=== PATIENT | female | born 1950 | race Caucasian/White ===

== ENCOUNTER 2017-09-20 22:01 | Emergency (ER) | payer MEDICARE, BC ==
[~2017-09-20] VITALS: Ht 149.9 cm; Wt 82.6 kg
[2017-09-20 22:05] VITALS: BP 165/80
--- NOTE | 2017-09-20 23:07 | NUR ---
CALLED PT NAME X3. PT LEFT PER ADMITTING
== END 2017-09-20 23:13 | disposition left against medical advice (07) ==
LOC: ER 22:02
DX: Z53.21 Procedure and treatment not carried out due to patient leaving prior to being seen by health care provider (principal)
CPT/HCPCS: A4606; Z7610

== ENCOUNTER 2017-09-21 03:01 | Emergency (ER) | payer MEDICARE, BC ==
[~2017-09-21] VITALS: Ht 149.9 cm; Wt 86.2 kg
--- NOTE | 2017-09-21 03:14 | NUR ---
PT BIB [facility] TO ER BED 6, PT C/O BACK PAIN. PT HAS HX OF CHRONIC BACK PAIN, PENDING SX. PT PLACED IN GOWN AND MANAGER QUALITY COMPLIANCE. VSS/RESP EVEN UNLABORED/NAD NOTED/SKIN WARM AND DRY/DENIES N-V-D/AOX4. AWAITING MD FREEMAN.
[2017-09-21] MEDS ORDERED: KETOROLAC TROMETHAMINE 15 MG/ML VIAL ONE (03:29)
[2017-09-21] MEDS ORDERED: ACETAMINOPHEN 325 MG TABLET PO ONE (03:30)
[2017-09-21] MEDS ORDERED: ACETAMINOPHEN ES 500 MG TABLET ONE (03:30)
[2017-09-21] MEDS ORDERED: KETOROLAC TROMETHAMINE INJ 30 MG/ML VIAL IM ONE (03:30)
--- NOTE | 2017-09-21 04:15 | NUR ---
PT VSS, CONTINUING TO PROVIDE SAFETY AND COMFORT MEASURES.
--- NOTE | 2017-09-21 05:01 | NUR ---
Chioma rizzo in ED - 09/21/17 at 0522 by RENÉE PT UP TO BEDSIDE COMMODE.
--- NOTE | 2017-09-21 05:24 | NUR ---
Patient discharged to home in stable condition. Written and verbal after care instructions given. Patient verbalizes understanding of instruction. Pt discharged via wheelchair.
[2017-09-21 05:28] VITALS: BP 129/78
== END 2017-09-21 05:28 | disposition home or self-care (01) ==
LOC: ER 03:10
DX: G89.29 Other chronic pain (principal); M54.9 Dorsalgia, unspecified; I10 Essential (primary) hypertension; Z88.6 Allergy status to analgesic agent
CPT/HCPCS: A4606; J1885; Z7610

== ENCOUNTER 2020-08-21 21:56 | Emergency (ER) | payer BC, MEDICARE ==
[~2020-08-21] VITALS: Ht 144.8 cm; Wt 88.0 kg
--- NOTE | 2020-08-21 22:20 | NUR ---
BIBS FOR C/O MIDSTERNAL CP RADITING TO THE L BREAST X 20 MIN. PT AMBULATORY TO BED 01. PLACED ON A MONITOR ,. VSS. WILL CONT TO MONITOR ,
--- NOTE | 2020-08-21 22:44 | NUR ---
dr cutler at bed side
[2020-08-21 22:51] LABS: BASOPHILS % (AUTO) 0.8 % (0.0-2.0); EOSINOPHILS % (AUTO) 3.3 % (0.0-6.0); HEMATOCRIT 38 % (33-45); HEMOGLOBIN 12.4 g/dL (11.5-14.8); LYMPHOCYTES # (AUTO) 1.7 /CMM (0.8-4.8); MEAN CORPUSCULAR HGB CONC 33 g/dl (31.0-36.0); MEAN CORPUSCULAR VOLUME 89 fL (82-100); MONOCYTES # (AUTO) 0.5 /CMM (0.1-1.30); MONOCYTES % (AUTO) 8.1 % (2.0-12.0); NEUTROPHILS # (AUTO) 3.3 /CMM (1.8-8.9); NEUTROPHILS % (AUTO) 57.8 % (43.0-81.0); PLATELET COUNT (AUTO) 241 /CMM (150-450); RED BLOOD CELL COUNT(AUTO) 4.27 MIL/uL (4.0-5.2); WHITE BLOOD COUNT (AUTO) 5.7 K/uL (4.3-11.0)
[2020-08-21 23:03] LABS: CALCIUM, SERUM 9.5 mg/dL (8.5-10.1); CARBON DIOXIDE 27 mmol/L (21-32); CHLORIDE 103 mmol/L (98-107); CREATININE 0.9 mg/dL (0.6-1.3); GLUCOSE 102 mg/dL (74-106); POTASSIUM 3.8 mmol/L (3.5-5.1); SODIUM SERUM 139 mmol/L (136-145); UREA NITROGEN, BLOOD 28 mg/dL (7-18)
--- NOTE | 2020-08-22 00:02 | NUR ---
PT IS MEDICALLY STABLE FOR D/C. IV removed. Catheter intact and site benign. Pressure and 4x4 applied to site. No bleeding noted.Patient discharged to home in stable condition. Written and verbal after care instructions given. Patient verbalizes understanding of instruction.
[2020-08-22 00:05] VITALS: BP 150/88
== END 2020-08-22 00:06 | disposition home or self-care (01) ==
LOC: ER 22:00
DX: R07.9 Chest pain, unspecified (principal); Z20.828 Contact with and (suspected) exposure to other viral communicable diseases; Z88.5 Allergy status to narcotic agent; Z88.2 Allergy status to sulfonamides; I10 Essential (primary) hypertension
CPT/HCPCS: 36415; 71045; 80048; 84484; 85025; 93005 ×2; 99285; C9803; U0003

== ENCOUNTER 2022-02-11 10:57 | Emergency (ER) | payer BC ==
[~2022-02-11] VITALS: Ht 144.8 cm; Wt 87.1 kg
--- NOTE | 2022-02-11 11:15 | NUR ---
DR. FRANCOIS AT [facility]
[2022-02-11 11:55] LABS: BASOPHILS % (AUTO) 0.4 % (0.0-2.0); EOSINOPHILS % (AUTO) 1.3 % (0.0-6.0); HEMATOCRIT 37 % (33-45); HEMOGLOBIN 12.4 g/dL (11.5-14.8); LYMPHOCYTES # (AUTO) 1.3 K/uL (0.8-4.8); LYMPHOCYTES % (AUTO) 24.1 % (20.0-44.0); MEAN CORPUSCULAR HGB CONC 34 g/dl (31.0-36.0); MEAN CORPUSCULAR VOLUME 87 fL (82-100); MONOCYTES # (AUTO) 0.4 K/uL (0.1-1.30); MONOCYTES % (AUTO) 6.9 % (2.0-12.0); NEUTROPHILS # (AUTO) 3.6 K/uL (1.8-8.9); NEUTROPHILS % (AUTO) 67.3 % (43.0-81.0); PLATELET COUNT (AUTO) 196 K/uL (150-450); RED BLOOD CELL COUNT(AUTO) 4.22 MIL/uL (4.0-5.2); WHITE BLOOD COUNT (AUTO) 5.3 K/uL (4.3-11.0)
--- NOTE | 2022-02-11 12:00 | NUR ---
PT P/U FOR CT SCAN
[2022-02-11 12:10] LABS: CALCIUM, SERUM 8.9 mg/dL (8.5-10.1); CREATININE 0.8 mg/dL (0.6-1.3); POTASSIUM 4.2 mmol/L (3.5-5.1)
[2022-02-11 12:16] LABS: ALBUMIN 3.4 g/dL (3.4-5.0); BILIRUBIN,DIRECT 0.1 mg/dL (0.0-0.2); BILIRUBIN,TOTAL 0.2 mg/dL (0.2-1.0); TOTAL PROTEIN, SERUM 6.9 g/dL (6.4-8.2)
[2022-02-11] MEDS ORDERED: LOPE2CAP40 PO (13:44)
[2022-02-11 13:58] VITALS: BP 125/77
--- NOTE | 2022-02-11 14:00 | NUR ---
Patient discharged to home in stable condition. Written and verbal after care instructions given. Patient verbalizes understanding of instruction.
== END 2022-02-11 14:00 | disposition home or self-care (01) ==
LOC: ER 11:01
DX: R10.84 Generalized abdominal pain (principal); I10 Essential (primary) hypertension; Z88.2 Allergy status to sulfonamides; Z88.6 Allergy status to analgesic agent; Z88.8 Allergy status to other drugs, medicaments and biological substances; Z79.899 Other long term (current) drug therapy
CPT/HCPCS: 36415; 80048-TC; 80076-TC; 83690-TC; 85025-TC

== ENCOUNTER 2025-03-14 15:37 | Emergency (ER) | payer BC ==
[~2025-03-14] VITALS: Ht 142.2 cm; Wt 81.2 kg
[~2025-03-14 15:37] MED LIST: LOPE2CAP40 PO
[2025-03-14 15:56] VITALS: BP 132/68; TEMP 98; O2SAT 98
== END 2025-03-14 17:11 | disposition left against medical advice (07) ==
LOC: ER 15:48
DX: R10.84 Generalized abdominal pain (principal); Z53.21 Procedure and treatment not carried out due to patient leaving prior to being seen by health care provider